=== PATIENT | female | born 1970 | race Caucasian/White ===

== ENCOUNTER 2017-01-16 18:11 | Inpatient (IN) | payer BC ==
[~2017-01-16] VITALS: Ht 162.6 cm; Wt 78.1 kg
[2017-01-16] MEDS ORDERED: PLAVIX 75MG TAB75 MG PO (18:46)
[2017-01-16] MEDS ORDERED: SINGULAIR 110 MG/TAB PO (18:46)
[2017-01-16] MEDS ORDERED: ZYRTEC 10MG10 MG PO (18:47)
[2017-01-16] MEDS ORDERED: ASPIRIN 81M81 MG/TA2 PO (18:48)
[2017-01-16] MEDS ORDERED: LIPITOR 10MG10 MG PO (18:48)
[2017-01-16 19:18] VITALS: BP 154/89; PULSE 98; TEMP 98.9
[2017-01-16 20:44] VITALS: BP 154/89; PULSE 98
[2017-01-16 20:50] LABS: BASO % 0.3 % (0.0-2.0); EOS % 0.1 % (0-4.0); GRAN # 10.3 (1.4-6.5); GRAN % 88.1 % (42.2-75.2); LYMPH # 0.7 (1.2-3.4); MEAN CELL VOLUME 98 fl (80.0-100.0); MEAN CORPUSCULAR HEMOGLOBIN 33 pg (27.0-31.0); MEAN CORPUSCULAR HGB CONC 34 g/dl (33.0-37.0); MEAN PLATELET VOLUME 9.5 fl (7.4-10.4); MONO # 0.6 (0.1-0.6); MONO % 5.2 % (1.7-9.3); PLATELET COUNT 237 K/mm3 (130-400); RED BLOOD COUNT 3.62 M/mm3 (4.10-5.30); REDCELL DISTRIBUTION WIDTH-CV 12.1 % (11.5-14.5); WHITE BLOOD COUNT 11.7 K/mm3 (4.8-10.8)
[2017-01-16 20:53] LABS: HEMATOCRIT 35.4 % (37.0-47.0)
[2017-01-16 21:03] LABS: ADJUSTED CALCIUM 8.5 mg/dL (8.4-10.2); ALBUMIN 3.9 gm/dL (3.5-5.0); BILIRUBIN,TOTAL 0.7 mg/dL (0.0-1.0); CALCIUM 8.4 mg/dL (8.4-10.2); CREATININE, serum 0.69 mg/dL (0.52-1.25); POTASSIUM 3.6 mmol/L (3.4-5.0); TOTAL PROTEIN 7.1 gm/dL (6.4-8.2)
[2017-01-16 23:57] LABS: PH 5 (5-8); URINE APPEARANCE Hazy; URINE BACTERIA None Seen /hpf; URINE BILIRUBIN Negative (NEGATIVE); URINE BLOOD 3+ (NEGATIVE); URINE COLOR Yellow; URINE GLUCOSE Negative (NEGATIVE); URINE KETONE 1+ (NEGATIVE); URINE UROBILINOGEN Negative (NEGATIVE)
[2017-01-17] VITALS (9 sets, daily range): BP systolic 112–154; BP diastolic 69–89; PULSE 85–114; TEMP 97.8–98.6
[2017-01-18] VITALS (14 sets, daily range): BP systolic 130–153; BP diastolic 66–88; PULSE 87–123; TEMP 97.7–98.7
[2017-01-19] VITALS (7 sets, daily range): BP systolic 151–169; BP diastolic 74–93; PULSE 41–115; TEMP 97.6–98.6
[2017-01-19 08:37] LABS: HEMATOCRIT 33.9 % (37.0-47.0); HEMOGLOBIN 11.5 g/dl (12.5-16.0)
[2017-01-20 01:48] VITALS: BP 157/83; PULSE 113; TEMP 98.3
[2017-01-20 05:45] VITALS: BP 147/78; PULSE 120; TEMP 99
[2017-01-20 09:46] VITALS: BP 143/83; PULSE 135; TEMP 98.2
[2017-01-20 13:23] VITALS: BP 139/85; PULSE 132; TEMP 98.5
[2017-01-20 16:57] VITALS: BP 129/97; PULSE 134; TEMP 98.3
[2017-01-20 16:59] VITALS: PULSE 114
[2017-01-21 06:19] VITALS: BP 143/77; PULSE 120; TEMP 97.6
[2017-01-21 08:50] LABS: BASO % 0.3 % (0.0-2.0); EOS # 0.3 (0.0-0.7); EOS % 2.3 % (0-4.0); GRAN # 10.8 (1.4-6.5); GRAN % 81.1 % (42.2-75.2); LYMPH # 1.6 (1.2-3.4); MEAN CELL VOLUME 97 fl (80.0-100.0); MEAN CORPUSCULAR HGB CONC 34 g/dl (33.0-37.0); MONO # 0.5 (0.1-0.6); MONO % 3.8 % (1.7-9.3); PLATELET COUNT 332 K/mm3 (130-400); REDCELL DISTRIBUTION WIDTH-CV 12.2 % (11.5-14.5); WHITE BLOOD COUNT 13.3 K/mm3 (4.8-10.8)
[2017-01-21 08:51] LABS: HEMATOCRIT 32.9 % (37.0-47.0); HEMOGLOBIN 11.3 g/dl (12.5-16.0); MEAN CORPUSCULAR HEMOGLOBIN 33 pg (27.0-31.0)
[2017-01-21 09:01] LABS: CALCIUM 9.1 mg/dL (8.4-10.2); CREATININE, serum 0.54 mg/dL (0.52-1.25); POTASSIUM 3.2 mmol/L (3.4-5.0)
[2017-01-21 09:23] VITALS: BP 129/78; PULSE 119; TEMP 97.9
[2017-01-21] MEDS ORDERED: ASPIRIN 32325 MG/TAB PO (11:42)
[2017-01-21] MEDS ORDERED: FERROUS SU325 MG/TAB PO (11:42)
[2017-01-21] MEDS ORDERED: SENOKOT S 50 MG1 TAB PO (11:42)
[2017-01-21] MEDS ORDERED: ROXICODONE 55 MG/TAB PO (11:42)
[2017-01-21] MEDS ORDERED: AMBIEN 5MG TABLE5 MG PO (11:42)
[2017-01-21] MEDS ORDERED: DUO-KAPS1 CAP PO (11:42)
[2017-01-21] MEDS ORDERED: OYSCO 500500 M1 PO (11:42)
[2017-01-21] MEDS ORDERED: VITAMINC500CH PO (11:42)
[2017-01-21] MEDS ORDERED: LIPITOR 40MG TA40 MG PO (11:42)
[2017-01-21] MEDS ORDERED: TYLENOL 325MG325 MG PO (11:42)
[2017-01-21] MEDS ORDERED: NORCO 325 MG-51 TAB PO (11:42)
[2017-01-21 12:27] VITALS: BP 129/78; PULSE 119; TEMP 97.9
== END 2017-01-21 13:45 | DRG 241 ==
LOC: SURG 18:11
PROVIDERS: Nurse Practitioner; Nurse Practitioner Family; Orthopaedic Surgery
PROC: 0Y6J0Z1 Detachment at Left Lower Leg, High, Open Approach (ICD-10-PCS; principal; 2017-01-18 10:00)
DX: I73.1 Thromboangiitis obliterans [Buerger's disease] (principal); E87.6 Hypokalemia; E78.5 Hyperlipidemia, unspecified; Z87.891 Personal history of nicotine dependence
CPT/HCPCS: 99222-AI; 99232-AI; 99233-AI; 99239; A9284; J0690; J1100; J1170; J1644; J2060; J2270; J2405; J2704; J3010; J7030; J7120